=== PATIENT | male | born 1985 | race Two or more races ===

== ENCOUNTER 2022-07-20 13:11 | Emergency (ER) | payer MEDICAID ==
[~2022-07-20] VITALS: Ht 180.3 cm; Wt 104.3 kg
--- NOTE | 2022-07-20 14:09 | NUR ---
AT BEDSIDE FOR EVAL
--- NOTE | 2022-07-20 14:25 | NUR ---
ESTABLISHED IV LINE 20 G RIGHT AC , BLOOD SAMPLE OBTAINED SENT TO LAB
[2022-07-20] MEDS ORDERED: IV NS 0.9% 1,000 ML BAG IV ONE (14:30)
--- NOTE | 2022-07-20 14:30 | NUR ---
COVID AND INFLUENZA SWAB TAKEN
[2022-07-20 14:57] LABS: EOSINOPHILS % (AUTO) 1.6 % (0.0-6.0); HEMATOCRIT 47 % (39-51); HEMOGLOBIN 15.4 g/dL (13.5-17.5); LYMPHOCYTES # (AUTO) 0.5 K/uL (0.8-4.8); LYMPHOCYTES % (AUTO) 6.1 % (20.0-44.0); MEAN CORPUSCULAR HGB CONC 33 g/dl (31.0-36.0); MEAN CORPUSCULAR VOLUME 90 fL (80-96); MONOCYTES # (AUTO) 0.8 K/uL (0.1-1.30); MONOCYTES % (AUTO) 10.4 % (2.0-12.0); NEUTROPHILS # (AUTO) 6.4 K/uL (1.8-8.9); NEUTROPHILS % (AUTO) 81.9 % (43.0-81.0); PLATELET COUNT (AUTO) 187 K/uL (150-450); RED BLOOD CELL COUNT(AUTO) 5.16 MIL/uL (4.5-6.0); WHITE BLOOD COUNT (AUTO) 7.8 K/uL (4.3-11.0)
[2022-07-20 15:08] LABS: CALCIUM, SERUM 8.5 mg/dL (8.5-10.1); CARBON DIOXIDE 25 mmol/L (21-32); CHLORIDE 106 mmol/L (98-107); CREATININE 1.5 mg/dL (0.6-1.3); GLUCOSE 94 mg/dL (74-106); POTASSIUM 3.8 mmol/L (3.5-5.1); SODIUM SERUM 139 mmol/L (136-145); UREA NITROGEN, BLOOD 16 mg/dL (7-18)
[2022-07-20 15:15] LABS: ALANINE AMINOTRANSFERASE 32 U/L (12-78); ALBUMIN 3.6 g/dL (3.4-5.0); ALKALINE PHOSPHATASE 88 U/L (46-116); ASPARTATE AMINOTRANSFERASE 34 U/L (15-37); BILIRUBIN,DIRECT 0.2 mg/dL (0.0-0.2); BILIRUBIN,TOTAL 0.7 mg/dL (0.2-1.0)
[2022-07-20] MEDS ORDERED: IOHEXOL-350 100 ML VIAL IV ONE (15:24)
[2022-07-20] MEDS ORDERED: IV NS 0.9% 250 ML IV ONE (15:24)
[2022-07-20] MEDS ORDERED: HEPARIN SODIUM, PORCINE 5000 UNITS/1 ML VIAL IV ONE (16:00)
[2022-07-20] MEDS ORDERED: ASPIRIN 325 MG TABLET PO ONE (16:00)
[2022-07-20] MEDS ORDERED: HEPARIN INFUSION/D5W 500 ML IV ONE ×2 (16:00→16:04)
[2022-07-20] MEDS ORDERED: ASPIRIN 325 MG TABLET ONE (16:03)
[2022-07-20] MEDS ORDERED: HEPARIN SODIUM, PORCINE 5000 UNITS/1 ML VIAL ONE (16:04)
--- NOTE | 2022-07-20 16:16 | NUR ---
CALLED [facility] SPOKE TO MITESH, STATES AT CAPACITY BUT WILL SEND CLINICALS TO HOSPITALS, FAXED FACESHEET AND CLINICALS TO [phone]
--- NOTE | 2022-07-20 16:23 | NUR ---
CALLED [facility]. SPOKE WITH REJI, FAXED OVER FACESHEET AND CLINICALS.
--- NOTE | 2022-07-20 16:42 | NUR ---
SPOKE WITH [facility]. FAXING FACESHEET AND CLINICALS OVER TO [phone].
--- NOTE | 2022-07-20 17:09 | NUR ---
TROPONIN IS 450
--- NOTE | 2022-07-20 17:46 | NUR ---
JANE (ELLEN) DECLINED CASE DUE TO CAPACITY STATUS
--- NOTE | 2022-07-20 18:55 | NUR ---
PER REJI AT [facility] ([phone]), PT IS ACCEPTED TO [facility] AND CASE HAS BEEN REFERRED TO COMPENSATOR WORKER.
[2022-07-20] MEDS ORDERED: ENOXAPARIN SODIUM 100 MG/ML DISP.SYRIN SQ ONE ×2 (19:00→19:14)
--- NOTE | 2022-07-20 19:04 | NUR ---
PT HAS BEEN ACCEPTED TO [facility] ICU, PENDING BED AVAILABILITY PER LEVY FROM [facility].
--- NOTE | 2022-07-20 19:36 | NUR ---
RECEIVED PT IN ER BED 9. PT IS ALERT AND ORIENTED. RR EVEN AND NON LABORED. CONNECTED TO POX AND HEART MONITOR. DENIES ANY PAIN AT THIS TIME. VSS. ALL NEEDS ARE MET AT THIS TIME. WILL CONTINUE TO MONITOR
--- NOTE | 2022-07-20 20:12 | NUR ---
SECOND IV LINE ESTABLISHED, [id number]
--- NOTE | 2022-07-20 21:10 | NUR ---
[facility] REQUEST CALL BACK PER TRANSFER FINALIZATION AT [phone] OPTION 3 FOR REJI
--- NOTE | 2022-07-20 21:20 | NUR ---
XANDER WITH REJI AT [facility]. STILL PENDING BED AVAILABILITY. [facility] TIER LIFT TRUCK OPERATOR # [phone].
--- NOTE | 2022-07-20 21:35 | NUR ---
[facility] CALLED FOR HIGHER LEVEL OF CARE. NO CAPACITY.
--- NOTE | 2022-07-20 22:24 | NUR ---
CALLED [facility], [facility] STATES NO BED AVAILABLE DUE TO CAPACITY
--- NOTE | 2022-07-21 01:56 | NUR ---
PT IS RESTING COMFORTABLY IN BED, DENIES ANY DISCOMFORT AT THIS TIME. RR EVEN AND NONLABORED. CONTINUES TO BE MONITORED AND CONNECTED TO POX AND HEART MONITOR.
--- NOTE | 2022-07-21 07:10 | NUR ---
RECEIVED PT FROM THEO RN PT AWAKEAND ALERT VODING 250ML CLEAR YELLOW COLOR
--- NOTE | 2022-07-21 08:14 | NUR ---
CALLED [facility] PENSIONS RETIREMENT PLAN SPECIALIST # [phone] BRIAN NO BED AVAILABLE YET.
--- NOTE | 2022-07-21 08:28 | NUR ---
VODING 280 ML CLEAR YELLOW COLOR
--- NOTE | 2022-07-21 10:42 | NUR ---
Called [facility] for transfer, spoke with Boby who said they have no capacity at this time.
--- NOTE | 2022-07-21 12:57 | NUR ---
DINESES CHEST PAIN OR SOB
--- NOTE | 2022-07-21 13:08 | NUR ---
CALLED [facility] AND SPOKE WITH CHELSEA, WHO NOTIFIED ME THAT THEY ARE AT CRITICAL CAPACITY. CHELSEA TOOK PT INFO AND HE IS ON A LIST NOW, BUT DID NOT EXPECT A BED TO OPEN SOON.
--- NOTE | 2022-07-21 14:08 | NUR ---
[facility] [phone]
--- NOTE | 2022-07-21 14:19 | NUR ---
[facility] [phone] FAXED [phone] TO [facility]
--- NOTE | 2022-07-21 14:42 | NUR ---
[facility] [phone] OLIVIA. REQUESTED CLINICALS FAXED TO [phone]
--- NOTE | 2022-07-21 14:55 | NUR ---
DR. PHILLIPS NOTEFY PT XC/O CHEST PAIN 12/06 NO SOB OR DISTRESS
--- NOTE | 2022-07-21 15:18 | NUR ---
[facility], NO ICU BED AVAILABLE
--- NOTE | 2022-07-21 15:32 | NUR ---
[facility] CALL[facility] CAPACITY PER [facility].
--- NOTE | 2022-07-21 16:52 | NUR ---
ANIL FOR HOSPITALE AND TRANSFER PROCESS
--- NOTE | 2022-07-21 19:35 | NUR ---
HAND OFF LULÚ CASTRO
--- NOTE | 2022-07-21 19:42 | NUR ---
CALLED [facility] [phone] GEORGETTE NICHOLE WILL LOOK INTO GETTING AN UPDATE ON BED AND WILL CALL US BACK.
--- NOTE | 2022-07-21 19:45 | NUR ---
CLINICALS FAXES TO [facility] [phone]. PER CAMDEN LOPEZ [facility] STILL AT CAPACITY.
--- NOTE | 2022-07-21 20:17 | NUR ---
PATIENT RESTING COMFORTABLY NO COMLAINTS AT THIS TIME.
--- NOTE | 2022-07-21 20:17 | NUR ---
[facility] CALLED, DR. COLORADO SPEAKING WITH DR. CAST.
[2022-07-21] MEDS ORDERED: ENOXAPARIN SODIUM 100 MG/ML DISP.SYRIN SQ ONE (20:29)
[2022-07-21] MEDS: ENOXAPARIN SODIUM 100 MG/ML DISP.SYRIN SQ SCH (20:33)
--- NOTE | 2022-07-21 21:27 | NUR ---
PER [facility] NO BEDS AVAILABLE (PER DIONISIO)
--- NOTE | 2022-07-21 21:35 | NUR ---
PER [facility] NO ICU BEDS AVAILABLE. (PER DANIEL)
--- NOTE | 2022-07-21 22:54 | NUR ---
PATIENT COMPLAINING OF WORSENING SOB, STARTING TO DESAT ON NASAL CANNULA 88-90% PLACED ON SIMPLE MASK 10L NOW SATTING 94-95%.
[2022-07-22] MEDS ORDERED: ONDANSETRON HCL/PF 4 MG/2 ML VIAL ONE ×2 (03:08→14:32)
--- NOTE | 2022-07-22 03:12 | NUR ---
PATIENT COMPLAINING OF NAUSEA, AND NOSE "STARTING TO BURN FROM NC" PLACED ON SIMPLE MASK, PATIENT STATES THAT FEELS ALOT BETTER
[2022-07-22] MEDS ORDERED: ONDANSETRON HCL/PF 4 MG/2 ML VIAL IV ONE ×2 (03:30→15:00)
--- NOTE | 2022-07-22 04:14 | NUR ---
PATIENT RESTING COMFORTABLY NO COMPLAINTS AT THIS TIME.
--- NOTE | 2022-07-22 06:13 | NUR ---
PATIENT AWAKE ON CELLPHONE DENIES ANY DISCOMFORT AT THIS TIME.
--- NOTE | 2022-07-22 06:45 | NUR ---
PATIENT RESTING COMFORTABLY NO COMPLAINTS AT THIS TIME.
[2022-07-22 06:58] LABS: CALCIUM, SERUM 8.5 mg/dL (8.5-10.1); CREATININE 1.4 mg/dL (0.6-1.3)
[2022-07-22 06:59] LABS: BASOPHILS # (AUTO) 0.1 K/uL (0.0-0.2); BASOPHILS % (AUTO) 0.8 % (0.0-2.0); EOSINOPHILS % (AUTO) 1.2 % (0.0-6.0); HEMATOCRIT 44 % (39-51); HEMOGLOBIN 14.7 g/dL (13.5-17.5); LYMPHOCYTES # (AUTO) 2.2 K/uL (0.8-4.8); LYMPHOCYTES % (AUTO) 30.8 % (20.0-44.0); MEAN CORPUSCULAR HGB CONC 33 g/dl (31.0-36.0); MEAN CORPUSCULAR VOLUME 90 fL (80-96); MONOCYTES # (AUTO) 0.8 K/uL (0.1-1.30); NEUTROPHILS % (AUTO) 56.2 % (43.0-81.0); PLATELET COUNT (AUTO) 192 K/uL (150-450); RED BLOOD CELL COUNT(AUTO) 4.88 MIL/uL (4.5-6.0); WHITE BLOOD COUNT (AUTO) 7.1 K/uL (4.3-11.0)
--- NOTE | 2022-07-22 07:10 | NUR ---
RECEIVED PT FROM SUE CASTRO PT AWAKE AND ALERT NO DISTRESS RESING AT THIS TIME WITH FIO2 10L FACE ARMANDO CHEST PAIN 2/ NO DISTRESS AT THIS TIME
--- NOTE | 2022-07-22 07:16 | NUR ---
TROPONIN 568
--- NOTE | 2022-07-22 07:59 | NUR ---
CALLED [facility] [phone] PER SEAN BED ASSIGNMENT CALL [phone] 2 2 AND FAXED NEW FACESHEET TO [phone]
--- NOTE | 2022-07-22 08:23 | NUR ---
[facility] TRANSF[facility] [phone] [facility] BEDS AVAILABLE AT THIS TIME.
--- NOTE | 2022-07-22 08:32 | NUR ---
[facility] [phone] LEFT VM.
--- NOTE | 2022-07-22 08:34 | NUR ---
[facility] [phone] PER MADELYN COOK ONLY TAKING CAPITATED PATIENTS AND [facility] IS AT CAPACITY. WILL NOT BE ABLE TO PLACE PATIENT ON WAITLIST SINCE [facility] DOES NOT OFFER IR.
[2022-07-22] MEDS: ENOXAPARIN SODIUM 100 MG/ML DISP.SYRIN SQ SCH ×2 (09:00→11:24)
--- NOTE | 2022-07-22 09:19 | NUR ---
[facility] ONE CALL [phone] NO BEDS AVAIALBLE PER KEVIN.
--- NOTE | 2022-07-22 09:27 | NUR ---
CALLED CARDIOLOGY DR. WEEKS WILL BE PAGED.
--- NOTE | 2022-07-22 10:03 | NUR ---
DR. WEEKS SPEAKING WITH DR. PHILLIPS.
--- NOTE | 2022-07-22 10:08 | NUR ---
ANGELA BETHEA SPEAKING WITH DR. PHILLIPS.
--- NOTE | 2022-07-22 10:14 | NUR ---
CALLED DR. ARANDA [phone] OPTION [address] PHILLIPS.
--- NOTE | 2022-07-22 11:25 | NUR ---
DR. MILLER HERE SEE AND EXAMINE PT SPOOK WITH PT ABOT PLAN OF CARE
--- NOTE | 2022-07-22 11:45 | NUR ---
TO CT SACN OF HEAD
--- NOTE | 2022-07-22 12:06 | NUR ---
ECCHOCARDIO GRAM DONE AT BED SIDE
--- NOTE | 2022-07-22 12:59 | NUR ---
CALLED [facility] FOR ALS TRANSPORT, ETA 1500. THEN ALS MIGHT BE AVAILABLE AT 1830 PLEASE CALL BACK PER DISPOTCH.
--- NOTE | 2022-07-22 12:59 | NUR ---
CALLED [facility] FOR TRANSPORT NO ALS AVAILABLE.
--- NOTE | 2022-07-22 13:03 | NUR ---
[facility] [phone] NO ALS AT THIS TIME PER DISPATCHER
--- NOTE | 2022-07-22 13:08 | NUR ---
Called [facility] [phone] and [phone] (Javier) No ACLS available today
--- NOTE | 2022-07-22 13:09 | NUR ---
CALLED [facility] KALI NO ALS AVAIALBLE FOR TODAY
--- NOTE | 2022-07-22 13:25 | NUR ---
JOANN BUCK [facility] [phone] FAXED CLINICALS TO [phone]
--- NOTE | 2022-07-22 13:28 | NUR ---
[facility] [phone] NO AVAILABILITY PER SCOOBY
--- NOTE | 2022-07-22 13:32 | NUR ---
[facility] NO UNITS UNTIL 1800
--- NOTE | 2022-07-22 13:40 | NUR ---
HAND TO Sky KINNEY RN TO ED [facility]
--- NOTE | 2022-07-22 13:51 | NUR ---
NIRMAL Lamb RN FROM [facility] SPEAKING WITH MARIAN CASTRO.
[2022-07-22] MEDS ORDERED: ENOXAPARIN SODIUM 100 MG/ML DISP.SYRIN SQ ONE ×2 (14:00→14:04)
[2022-07-22 14:30] VITALS: BP 120/87
--- NOTE | 2022-07-22 14:44 | NUR ---
TRANSFER TO [facility] VIA ACLS TRANSPORTED CONTENUE OBSERVE PT AND MONITER
== END 2022-07-22 15:15 | disposition short-term general hospital (02) ==
LOC: ER 13:19
DX: I26.92 Saddle embolus of pulmonary artery without acute cor pulmonale (principal); Z20.822 Contact with and (suspected) exposure to COVID-19; R77.8 Other specified abnormalities of plasma proteins; R06.82 Tachypnea, not elsewhere classified; I82.431 Acute embolism and thrombosis of right popliteal vein; N28.9 Disorder of kidney and ureter, unspecified; I51.89 Other ill-defined heart diseases
CPT/HCPCS: 99291; 93308; 93970; 96365; 71275; 71045; 96366; 96361; 96375 ×2; 87426; 99292; 93005 ×2; 87804; 85025 ×2; 80048 ×2; 83605; 80076; 85378; 36415 ×2; 84484 ×3; 85730 ×2; 96372 ×2; 93307; 70450; 96376; J1644 ×2; J7050; J1650 ×3; Q9967; C9803; J2405 ×2

== ENCOUNTER 2024-04-10 09:46 | Inpatient (IN) | payer SELFPAY ==
[~2024-04-10] VITALS: Ht 180.3 cm; Wt 118.4 kg
[2024-04-10 10:36] LABS: BASOPHILS % (AUTO) 0.4 % (0.0-2.0); EOSINOPHILS # (AUTO) 0.1 K/uL (0.0-0.7); EOSINOPHILS % (AUTO) 2.6 % (0.0-6.0); HEMATOCRIT 41 % (39-51); HEMOGLOBIN 13.6 g/dL (13.5-17.5); LYMPHOCYTES # (AUTO) 1.3 K/uL (0.8-4.8); LYMPHOCYTES % (AUTO) 28.6 % (20.0-44.0); MEAN CORPUSCULAR HEMOGLOBIN 30 PG (26.0-33.0); MEAN CORPUSCULAR HGB CONC 33 g/dl (31.0-36.0); MEAN CORPUSCULAR VOLUME 91 fL (80-96); MONOCYTES # (AUTO) 0.4 K/uL (0.1-1.30); MONOCYTES % (AUTO) 9.5 % (2.0-12.0); NEUTROPHILS # (AUTO) 2.6 K/uL (1.8-8.9); NEUTROPHILS % (AUTO) 58.9 % (43.0-81.0); PLATELET COUNT (AUTO) 201 K/uL (150-450); RED BLOOD CELL COUNT(AUTO) 4.56 MIL/uL (4.5-6.0); RED CELL DISTRIBUTION WIDTH 14.5 % (11.5-15.0); WHITE BLOOD COUNT (AUTO) 4.4 K/uL (4.3-11.0)
[2024-04-10] MEDS ORDERED: IV NS 0.9% 250 ML IV ONE (10:43)
[2024-04-10] MEDS ORDERED: IOHEXOL-350 100 ML VIAL IV ONE (10:43)
[2024-04-10 10:46] LABS: CALCIUM, SERUM 8.9 mg/dL (8.5-10.1); CARBON DIOXIDE 27 mmol/L (21-32); CHLORIDE 105 mmol/L (98-107); CREATININE 1.1 mg/dL (0.6-1.3); GLUCOSE 91 mg/dL (74-106); POTASSIUM 3.8 mmol/L (3.5-5.1); SODIUM SERUM 140 mmol/L (136-145); UREA NITROGEN, BLOOD 10 mg/dL (7-18)
[2024-04-10 10:57] LABS: INR 1.05 (0.91-1.10); PROTHROMBIN TIME 11.1 SECS (9.2-11.1)
[2024-04-10] MEDS ORDERED: CT SWABBABLE VALVE TRANS SET 1 EA INFUS.SET MC ONE (10:59)
[2024-04-10] MEDS ORDERED: HEPARIN SODIUM, PORCINE 5000 UNITS/1 ML VIAL ONE (12:18)
[2024-04-10] MEDS ORDERED: MORPHINE SULFATE INJ 2 MG/ML DISP.SYRIN IV PRN (12:30)
[2024-04-10] MEDS ORDERED: ONDANSETRON HCL/PF 4 MG/2 ML VIAL IVP PRN (12:30)
[2024-04-10] MEDS ORDERED: hydrALAZINE HCL IV 20 MG VIAL IV PRN (12:30)
[2024-04-10] MEDS ORDERED: HEPARIN INFUSION/D5W 500 ML IV PRN (12:30)
[2024-04-10] MEDS ORDERED: HEPARIN INFUSION/D5W 500 ML IV SCH (12:30)
[2024-04-10] MEDS: HEPARIN SODIUM, PORCINE 5000 UNITS/1 ML VIAL IV ONE (12:30)
[2024-04-10] MEDS: HEPARIN INFUSION/D5W 500 ML IV PRN (12:53)
[2024-04-10 12:56] VITALS: BP 137/74; TEMP 97.4; O2SAT 100
[2024-04-10 16:00] VITALS: BP 143/85; TEMP 99; O2SAT 96
[2024-04-10] MEDS: ACETAMINOPHEN 325 MG TABLET PO PRN (18:31)
[2024-04-10 20:00] VITALS: BP 152/61; TEMP 99.9; O2SAT 97
[2024-04-11] VITALS (7 sets, daily range): BP systolic 115–152; BP diastolic 51–84; TEMP 98.2–98.4; O2SAT 96–98
[2024-04-11 02:39] LABS: BASOPHILS % (AUTO) 0.4 % (0.0-2.0); EOSINOPHILS # (AUTO) 0.1 K/uL (0.0-0.7); EOSINOPHILS % (AUTO) 2.3 % (0.0-6.0); HEMATOCRIT 41 % (39-51); HEMOGLOBIN 13.4 g/dL (13.5-17.5); LYMPHOCYTES # (AUTO) 2.1 K/uL (0.8-4.8); LYMPHOCYTES % (AUTO) 41.4 % (20.0-44.0); MEAN CORPUSCULAR HEMOGLOBIN 30 PG (26.0-33.0); MEAN CORPUSCULAR HGB CONC 33 g/dl (31.0-36.0); MEAN CORPUSCULAR VOLUME 91 fL (80-96); MONOCYTES # (AUTO) 0.4 K/uL (0.1-1.30); MONOCYTES % (AUTO) 7.8 % (2.0-12.0); NEUTROPHILS # (AUTO) 2.4 K/uL (1.8-8.9); NEUTROPHILS % (AUTO) 48.1 % (43.0-81.0); PLATELET COUNT (AUTO) 179 K/uL (150-450); RED BLOOD CELL COUNT(AUTO) 4.47 MIL/uL (4.5-6.0); RED CELL DISTRIBUTION WIDTH 14.2 % (11.5-15.0)
[2024-04-11 03:06] LABS: ALBUMIN 2.9 g/dL (3.4-5.0); BILIRUBIN,TOTAL 0.3 mg/dL (0.2-1.0); CALCIUM, SERUM 8.2 mg/dL (8.5-10.1); CREATININE 1.1 mg/dL (0.6-1.3); MAGNESIUM 1.8 mg/dL (1.8-2.4); PHOSPHORUS 4.4 mg/dL (2.5-4.9); POTASSIUM 3.8 mmol/L (3.5-5.1); TOTAL PROTEIN, SERUM 6.5 g/dL (6.4-8.2)
[2024-04-11] MEDS ORDERED: IOHEXOL-300 100 ML VIAL IV ONE (15:12)
[2024-04-11] MEDS ORDERED: IV NS 0.9% 250 ML IV ONE (15:13)
[2024-04-12] VITALS: BP 132/70; TEMP 97.9; O2SAT 96
[2024-04-12 04:00] VITALS: BP 120/71; TEMP 98.1; O2SAT 98
[2024-04-12 06:31] LABS: BASOPHILS % (AUTO) 0.4 % (0.0-2.0); EOSINOPHILS # (AUTO) 0.1 K/uL (0.0-0.7); EOSINOPHILS % (AUTO) 2.7 % (0.0-6.0); HEMATOCRIT 43 % (39-51); HEMOGLOBIN 14.1 g/dL (13.5-17.5); LYMPHOCYTES # (AUTO) 1.4 K/uL (0.8-4.8); LYMPHOCYTES % (AUTO) 37.2 % (20.0-44.0); MEAN CORPUSCULAR HEMOGLOBIN 30 PG (26.0-33.0); MEAN CORPUSCULAR HGB CONC 33 g/dl (31.0-36.0); MEAN CORPUSCULAR VOLUME 91 fL (80-96); MONOCYTES # (AUTO) 0.3 K/uL (0.1-1.30); MONOCYTES % (AUTO) 8.3 % (2.0-12.0); NEUTROPHILS # (AUTO) 1.9 K/uL (1.8-8.9); NEUTROPHILS % (AUTO) 51.4 % (43.0-81.0); PLATELET COUNT (AUTO) 189 K/uL (150-450); RED BLOOD CELL COUNT(AUTO) 4.71 MIL/uL (4.5-6.0); RED CELL DISTRIBUTION WIDTH 14.3 % (11.5-15.0); WHITE BLOOD COUNT (AUTO) 3.7 K/uL (4.3-11.0)
[2024-04-12 07:52] LABS: CALCIUM, SERUM 8.9 mg/dL (8.5-10.1); CREATININE 1.1 mg/dL (0.6-1.3); POTASSIUM 4.2 mmol/L (3.5-5.1)
[2024-04-12 08:00] VITALS: BP 126/73; TEMP 97.6; O2SAT 98
[2024-04-12 12:00] VITALS: BP 152/96; TEMP 97.8; O2SAT 96
[2024-04-12] MEDS: APIXABAN 5 MG TABLET PO SCH (13:20)
[2024-04-12 16:00] VITALS: BP 137/71; TEMP 98.2; O2SAT 97
[2024-04-12 20:00] VITALS: BP 144/89; TEMP 98.2; O2SAT 99
[2024-04-13] VITALS: BP 137/73; TEMP 97.7; O2SAT 94
[2024-04-13 04:00] VITALS: BP 137/73; TEMP 97.7; O2SAT 94
[2024-04-13 05:44] LABS: BASOPHILS % (AUTO) 0.8 % (0.0-2.0); EOSINOPHILS # (AUTO) 0.1 K/uL (0.0-0.7); EOSINOPHILS % (AUTO) 2.3 % (0.0-6.0); HEMATOCRIT 43 % (39-51); HEMOGLOBIN 14.6 g/dL (13.5-17.5); LYMPHOCYTES # (AUTO) 1.1 K/uL (0.8-4.8); LYMPHOCYTES % (AUTO) 32.6 % (20.0-44.0); MEAN CORPUSCULAR HEMOGLOBIN 31 PG (26.0-33.0); MEAN CORPUSCULAR HGB CONC 34 g/dl (31.0-36.0); MEAN CORPUSCULAR VOLUME 91 fL (80-96); MONOCYTES # (AUTO) 0.3 K/uL (0.1-1.30); NEUTROPHILS # (AUTO) 1.9 K/uL (1.8-8.9); NEUTROPHILS % (AUTO) 54.3 % (43.0-81.0); PLATELET COUNT (AUTO) 190 K/uL (150-450); RED BLOOD CELL COUNT(AUTO) 4.74 MIL/uL (4.5-6.0); WHITE BLOOD COUNT (AUTO) 3.5 K/uL (4.3-11.0)
[2024-04-13 06:00] LABS: CALCIUM, SERUM 9.2 mg/dL (8.5-10.1); CREATININE 1.1 mg/dL (0.6-1.3); POTASSIUM 4.4 mmol/L (3.5-5.1)
[2024-04-13 08:00] VITALS: BP 145/101; TEMP 97.9; O2SAT 97
[2024-04-13] MEDS ORDERED: APIX5TAB PO (11:11)
[2024-04-13 12:00] VITALS: BP 143/70; TEMP 98; O2SAT 98
== END 2024-04-13 13:28 | disposition home or self-care (01) | DRG 175 ==
LOC: ER 09:53 → TELE1 12:13
PROVIDERS: ADMIT Internal Medicine; ATTEND Internal Medicine
DX: I26.99 Other pulmonary embolism without acute cor pulmonale (principal); J96.01 Acute respiratory failure with hypoxia; Z86.711 Personal history of pulmonary embolism; Z86.718 Personal history of other venous thrombosis and embolism; Z91.199 Patient's noncompliance with other medical treatment and regimen due to unspecified reason; Z59.86 Financial insecurity; I70.0 Atherosclerosis of aorta
CPT/HCPCS: 36415; 71045-TC; 80048-TC; 80053-TC; 83735-TC; 83880; 84100-TC; 84484-TC; 85025-TC; 85378-TC; 85730-TC; 93307-TC; 93970-TC; A4223; G0378; J1644; J7050; Q9967